=== PATIENT | male | born 1995 | race Caucasian/White ===

== ENCOUNTER 2019-12-02 16:08 | Emergency (ER) | payer OTHER ==
[~2019-12-02] VITALS: Ht 180.3 cm; Wt 92.1 kg
[2019-12-02 16:16] VITALS: BP 144/72; Ht 180.3 cm; Wt 92.1 kg
== END 2019-12-02 16:51 | disposition home or self-care (01) ==
LOC: ED 16:08
DX: J34.89 Other specified disorders of nose and nasal sinuses (principal)